=== PATIENT | female | born 1980 | race African-American/Black ===

== ENCOUNTER 2024-11-28 16:30 | Emergency (ER) | payer MEDICAID ==
[~2024-11-28] VITALS: Ht 165.1 cm; Wt 87.5 kg
[2024-11-28] MEDS: KETOROLAC TROMETHAMINE 30 MG/ML VIAL IV STA (17:34)
[2024-11-28] MEDS ORDERED: IOPAMIDOL 370 MG/ML 100 ML INFUS..BTL INJ ONE (17:59)
[2024-11-28] MEDS ORDERED: AZITHROMYCIN250 MG PO (19:13)
[2024-11-28] MEDS ORDERED: KETOROLAC TROME10 MG PO (19:13)
[2024-11-28 19:14] VITALS: PULSE 71; RESP 16; TEMP 98.5
[2024-11-28] MEDS ORDERED: AMLODIPINE BESYL5 MG PO (19:22)
[2024-11-28] MEDS: AMLODIPINE BESYLATE 10 MG TAB PO ONE (19:35)
[2024-11-28 19:37] VITALS: BP 165/103; RESP 18; O2SAT 100
== END 2024-11-28 19:38 | disposition home or self-care (01) ==
LOC: FSED 16:36
DX: R10.11 Right upper quadrant pain (principal); J18.9 Pneumonia, unspecified organism; I10 Essential (primary) hypertension
CPT/HCPCS: 71046; 74177; 80053; 80076; 81003; 81025; 84484; 85025; 85379; 93005; 99284; J1885; Q9967